=== PATIENT | female | born 1955 | race Caucasian/White ===

== ENCOUNTER 2016-12-28 18:05 | Emergency (ER) | payer SELFPAY ==
[2016-12-28 18:17] VITALS: BP 133/82
--- NOTE | 2016-12-28 19:13 | RAD ---
INDICATION: Right forearm injury COMPARISON: None TECHNIQUE: AP, lateral, and oblique views were obtained. FINDINGS: There are no acute adenitis the forearm. Note is made of a small exostosis involving the distal humeral diaphysis. The soft tissues are normal. IMPRESSION: NO ACUTE BONY FINDINGS. SMALL EXOSTOSIS DISTAL HUMERUS.
--- NOTE | 2016-12-28 19:13 | RAD ---
INDICATION: Right shoulder pain COMPARISON: None TECHNIQUE: Routine frontal, Y and axial views were obtained. 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 There is minor spurring about the inferior glenoid. The shoulder articulates normally. Soft tissues are normal. IMPRESSION: MILD TO MODERATE OSTEOARTHRITIC CHANGE.
--- NOTE | 2016-12-28 19:39 | UC ---
Upper Extremity HPI - HPI Summary HPI Summary: FALL ON GRASS SEVERAL HOURS AGO AT WORK, SINCE TIME OF INJURY PAIN IN RIGHT SHOULDER AND RIGHT FOREARM. NO NECK PAIN. NO HEAD TRAUMA. NO LOC. NO HISTORY OF PREVIOUS INJURY. - History of Current Complaint Chief Complaint: UCUpperExtremity Stated Complaint: RT ARM PAIN Time Seen by Provider: 12/28/16 18:06 Hx Obtained From: Patient Hx Last Menstrual Period: 4-5 yrs Onset/Duration: Sudden Onset, Lasting Hours, Still Present Severity Initially: Moderate Severity Currently: Moderate Location Of Pain: Is Discrete @ - RIGHT FOREARM, Radiates To - RIGHT SHOUDLER Aggravating Factor(s): Flexion, Extension, Internal/External Rotation Alleviating Factor(s): Nothing Associated Signs And Symptoms: Positive: Negative Related History: Dominant Hand Right - Risk Factors Non-Orthopedic Risk Factor: Negative DVT Risk Factors: Negative Septic Arthritis Risk Factor: Negative - Allergies/Home Medications Allergies/Adverse Reactions: Allergies Allergy/AdvReac Type Severity Reaction Status Date / Time No Known Allergies Allergy Verified 12/28/16 18:18 PMH/Surg Hx/FS Hx/Imm Hx Previously Healthy: Yes - Surgical History Surgical History: Yes Surgery Procedure, Year, and Place: c-sections x2. knee surgery right - Family History Known Family History: Negative: Respiratory Disease - Social History Occupation: Employed Full-time Lives: With Family Alcohol Use: Rare Substance Use Type: None Smoking Status (MU): Never Smoked Tobacco Review of Systems Constitutional: Negative Skin: Negative Eyes: Negative ENT: Negative Respiratory: Negative Cardiovascular: Negative Gastrointestinal: Negative Genitourinary: Negative Motor: Negative Neurovascular: Negative Musculoskeletal: Arthralgia, Decreased ROM, Myalgia Neurological: Negative Psychological: Negative Is Patient Immunocompromised?: No All Other Systems Reviewed And Are Negative: Yes Physical Exam Triage Information Reviewed: Yes Appearance: Well-Appearing, Well-Nourished, Pain Distress - MILD Vital Signs: Initial Vital Signs Temp 98.7 F 12/28/16 18:13 Pulse 97 12/28/16 18:13 Resp 16 12/28/16 18:13 BP 133/82 12/28/16 18:13 Pulse Ox 100 12/28/16 18:13 Vital Signs Reviewed: Yes Eye Exam: Normal ENT Exam: Normal Dental Exam: Normal Neck exam: Normal Neck: Positive: Supple, Nontender - CENTRAL SPINE AND PARASPINAL CERVICAL MUSCLES NONTENDER TO PALPATION AND NO TENDERNESS WITH MOVEMENT, No Lymphadenopathy. Negative: Nuchal Rigidity, Tenderness @, Enlarged Nodes @ Respiratory Exam: Normal Respiratory: Positive: Chest non-tender, Lungs clear, Normal breath sounds, No respiratory distress, No accessory muscle use Cardiovascular Exam: Normal Cardiovascular: Positive: RRR, No Murmur, Pulses Normal, Brisk Capillary Refill Abdominal Exam: Normal Musculoskeletal: Positive: Strength Limited @ - RIGHT SHOUDLER, ROM Limited @ - RIGHT SHOUDLER, Other: - RIGHT FOREARM DORSAL MIDDLE ASPECT TENDER TO PALPATION Neurological Exam: Normal Psychological Exam: Normal Skin Exam: Normal Upper Extremity Course/Dx - Differential Dx/Diagnosis Differential Diagnosis/HQI/PQRI: Fracture (Closed), Strain, Sprain Provider Diagnoses: RIGHT SHOUDLER SPRAIN, RIGHT FOREARM, MUSCLE STRAIN, SMALL EXOSTOSIS DISTAL HUMERUS Discharge - Discharge Plan Condition: Stable Disposition: HOME Patient Education Materials: Muscle Strain (ED), Shoulder Sprain (ED), Tendinitis (ED) Forms: *Work Release Referrals: [facility] [Outside] Leonardo Orozco MD [Primary Care Provider] - Additional Instructions: PHYSICAL THERAPY REFERRAL: You have been prescribed physical therapy. Treatments may include stretching, exercise, application of heat or cold, and other modalities. After an injury, PT can reduce swelling and pain. In recovery, PT is used to restore mobility and strength. Your specific treatment goals are: ____X_ Reduction of Swelling (EGS, US, ice as needed) ___X__ Pain Reduction (EGS, US, ice as needed) ____X_ TENS Pack Fitting and Instruction Wound Hydrotherapy ___X__ Preservation of Mobility ___X__ Pentecostalism of Mobility ____X_ Strength Pentecostalism ___X__ Work or Sports Hardening This instruction sheet also serves as your PHYSICAL THERAPY REFERRAL! Please take it with you to the therapist, so he/she will be aware of your diagnosis and treatment plan. You may see the physical therapist of your choice for these treatments, but may wish to check with your insurance to be sure the provider you select is covered. It's important to see the doctor to whom you have been referred for follow up.
== END 2016-12-28 19:36 | disposition home or self-care (01) ==
LOC: UCCORT 18:05
DX: S43.401A Unspecified sprain of right shoulder joint, initial encounter (principal); S56.911A Strain of unspecified muscles, fascia and tendons at forearm level, right arm, initial encounter; M89.9 Disorder of bone, unspecified; W19.XXXA Unspecified fall, initial encounter; Y93.9 Activity, unspecified; Y92.9 Unspecified place or not applicable; Y99.0 Civilian activity done for income or pay
CPT/HCPCS: 99212; G0463

== ENCOUNTER 2017-06-15 09:05 | Emergency (ER) | payer OTHER ==
[2017-06-15 09:27] VITALS: BP 127/80
--- NOTE | 2017-06-15 10:16 | UC ---
UC General HPI - HPI Summary HPI Summary: Pt presents right upper arm aching two days ago. This morning had some tingling to her right finger. She admits that she is very stressed out with her marriage and work life. She is accompanied by her today, who says he has listened to her complain and be anxious for weeks. She does have a PCP and just saw them 3-4 months ago for a yearly physical and lab work - which was all WNL per pt. She says she is not usually an anxious person and just wanted to make sure she wasn't "having a heart attack". She denies SOB, chest pain, or current right arm pain/tingling. She works at [employer] in [employer] and has been there 8 years. She tells me that her job is increasingly stressful because many people have quit and the added work is being put on the current employees. - History of Current Complaint Hx Obtained From: Patient Hx Last Menstrual Period: 4-5 yrs Onset/Duration: Gradual Onset Onset Severity: Mild Current Severity: Mild Pain Intensity: 1 <Jose Miguel Narayan - Last Filed: 06/15/17 14:17> <Piedad Ochoa - Last Filed: 06/17/17 18:47> - History of Current Complaint Chief Complaint: UCGeneralIllness Stated Complaint: ANXIOUS,TINGLING IN FINGERS,ARM PAIN - Allergy/Home Medications Allergies/Adverse Reactions: Allergies Allergy/AdvReac Type Severity Reaction Status Date / Time No Known Allergies Allergy Verified 06/15/17 09:21 PMH/Surg Hx/FS Hx/Imm Hx Previously Healthy: Yes - Surgical History Surgical History: Yes Surgery Procedure, Year, and Place: c-sections x2. knee surgery right - Family History Known Family History: Negative: Respiratory Disease - Social History Alcohol Use: Rare Substance Use Type: None Smoking Status (MU): Never Smoked Tobacco <Jose Miguel Narayan - Last Filed: 06/15/17 14:17> Review of Systems Constitutional: Negative Skin: Negative Eyes: Negative ENT: Negative Respiratory: Negative Cardiovascular: Negative Gastrointestinal: Negative Genitourinary: Negative Motor: Negative Neurovascular: Negative Musculoskeletal: Other: - Right arm pain Neurological: Negative Psychological: Anxious All Other Systems Reviewed And Are Negative: Yes <Jose Miguel Narayan - Last Filed: 06/15/17 14:17> Physical Exam - Summary Physical Exam Summary: GENERAL: NAD. WDWN. No pain distress. SKIN: No rashes, sores, ulcers, masses, lesions. No clubbing or cyanosis. HEENT: Head: AT/NC Eyes: PERRLA. EOM intact. Conjunctiva clear without inflammation or discharge. Ears: Hearing grossly normal. TMs intact, no bulging, erythema, or edema. Nose: Nasal mucosa pink and moist. NTTP maxillary and frontal sinus. Throat: Posterior oropharynx without exudates, erythema, or tonsillar enlargement. Uvula midline. NECK: Supple. Nontender. No lymphadenopathy. CHEST: CTAB. No r/r/w. No accessory muscle use. Breathing comfortably and in no distress. CV: RRR. Without m/r/g. Pulses intact. Brisk cap refill. ABDOMEN: Soft. NTTP. No distention or guarding., No organomegaly. No CVA tenderness. Bowel sounds present x4. MSK: FROM and 5/5 strength throughout. No edema. NEURO: Alert. CN II-XII grossly intact. PSYCH: Appears anxious. Tearful throughout interview and exam. Age appropriate behavior. Denies suicidal/homicidal ideations and feels safe in her marriage. Triage Information Reviewed: Yes Vital Signs: Initial Vital Signs Temp 97.4 F 06/15/17 09:21 Pulse 73 06/15/17 09:21 Resp 16 06/15/17 09:21 BP 127/80 06/15/17 09:21 Pulse Ox 98 06/15/17 09:21 <Jose Miguel Narayan - Last Filed: 06/15/17 14:17> Vital Signs: Initial Vital Signs Temp 97.4 F 06/15/17 09:21 Pulse 73 06/15/17 09:21 Resp 16 06/15/17 09:21 BP 127/80 06/15/17 09:21 Pulse Ox 98 06/15/17 09:21 <Piedad Ochoa - Last Filed: 06/17/17 18:47> Course/Dx - Course Course Of Treatment: EKG NSR no ST elevation as read by Dr. Ochoa. I had a long discussion with the patient, in which she was very resistent to all the options presented to her. We discussed the possibility of therapy/counseling, to which she said that she cannot afford the $40 co-pay for each visit. I asked about EAP and she said those are not offered at her job. I mentioned free clinics and she said she doesn't have time. We then talked about medications via her primary doctor and she said that she does not want this because this only masks her anxiety and does not change the situation. She currently deines suicidal/homicidal ideations and feels safe in her marriage although she is not happy with it. I advised her to schedule a follow up apppointment with her PCP MERON. - Differential Dx - Multi-Symptom Provider Diagnoses: Right arm pain. Anxiety <Jose Miguel Narayan - Last Filed: 06/15/17 14:17> Discharge <Jose Miguel Narayan - Last Filed: 06/15/17 14:17> <Piedad Ochoa - Last Filed: 06/17/17 18:47> - Discharge Plan Condition: Stable Disposition: HOME Patient Education Materials: Stress (ED), Anxiety (ED) Referrals: Leonardo Orozco MD [Primary Care Provider] - Additional Instructions: If you develop a fever, shortness of breath, chest pain, new or worsening symptoms - please call your PCP or go to the ED. Attestation Statement User Type: Provider - I was available for consult. This patient was seen by the LANIE. The patient was not presented to, seen by, or examined by me. Yung <Piedad Ochoa - Last Filed: 06/17/17 18:47>
== END 2017-06-15 10:57 | disposition home or self-care (01) ==
LOC: UCEAST 09:05
DX: M79.601 Pain in right arm (principal); F41.9 Anxiety disorder, unspecified
CPT/HCPCS: 93005; 99211; G0463